=== PATIENT | male | born 1980 | race Caucasian/White ===

== ENCOUNTER 2024-11-08 07:45 | Day surgery (SDC) | payer OTHER ==
[2024-11-07 10:37] LABS: Absolute Eosinophils 0.1 K/uL (0-0.5); Absolute Lymphocytes (CBC) 1.9 K/uL (0.7-4.9); Absolute Monocytes 0.6 K/uL (0.1-1.3); Basophils % 0.6 % (0-1.3); Eosinophils % 1.6 % (0-4.4); Hematocrit 46.3 % (39.6-49.0); Lymphocytes % 24.5 % (15.3-44.8); MCH 32.1 pg (27.0-35.0); MCHC 34.6 g/dL (32.0-36.0); MCV 92.5 fL (80-100); MPV 8.6 fL (7.6-11.3); Monocytes % 7.9 % (3.3-12.3); Neutrophils % 65.4 % (41.7-73.7); Platelets 279 thou/uL (152-406)
[2024-11-07 10:45] LABS: PT Prothrombin Time 11.7 SECONDS (10.0-13.0); PTT, Activated Partial Thromb 29.7 SECONDS (24.3-36.9); Protime INR 1.03
[2024-11-07 10:52] LABS: Anion Gap 8.9 mEq/L (5.0-15.0); Potassium 3.9 mEq/L (3.5-5.1)
--- NOTE | 2024-11-07 12:40 | RAD REPORT ---
EXAMINATION: TWO VIEW CHEST XR CLINICAL INDICATION: Male, 44 years old. PRE OP. Hypertension TECHNIQUE: 2 view radiographs of the chest were performed. COMPARISON: No prior exam. FINDINGS: The lungs are well inflated and clear. No pneumothorax or sizable effusion. The heart is normal in si ze. Mediastinal contours are unremarkable. IMPRESSION: No acute or significant abnormalities.
[2024-11-08] MEDS ORDERED: NA CHLORIDE 0.9% 500 ML ONE (07:55)
[2024-11-08] MEDS ORDERED: HEPA 1000U/500MLS 2,000 UNIT/1,000 ML BAG IV ONE (08:32)
[2024-11-08] MEDS ORDERED: LIDOCAINE 1% 20 ML MDV ONE (08:33)
[2024-11-08] MEDS ORDERED: ATROPINE SULF 1 MG/10 ML SYR IV ONE (08:33)
[2024-11-08] MEDS ORDERED: HEPARIN 10,000 UNIT/10 ML VIAL IV ONE (08:33)
[2024-11-08] MEDS ORDERED: MIDAZOLAM HCL 2 MG/2 ML INJ ONE (08:33)
[2024-11-08] MEDS ORDERED: FENTANYL CITR 100 MCG/2 ML ONE (08:34)
[2024-11-08] MEDS ORDERED: TICAGRELOR 90 MG TABLET PO ONE (08:34)
[2024-11-08] MEDS ORDERED: HEPARIN 5000 UNIT/ML 1 ML VIAL ONE (08:34)
[2024-11-08] MEDS ORDERED: CLOPIDOGREL 75 MG TABLET ONE (08:34)
[2024-11-08] MEDS ORDERED: ASPIRIN 325 MG TAB ONE (08:34)
[2024-11-08 12:23] VITALS: BP 122/75; O2SAT 95
--- NOTE | 2024-11-08 21:26 | OP ---
Date of Procedure: 11/08/2024 Surgeon: Anthony Swanson Procedure Performed: Selective coronary angiogram. Indication For Procedure: Chest pain, abnormal stress test. Complications: None. Estimated Blood Loss: Less than 50 cc. Access: Right radial, closed by TR band. Sedation Time: 20 minutes with 1 of Versed and 50 of fentanyl. Description Of Procedure: After risks, benefits, and alternatives were explained to the patient, the patient agreed to proceed with procedure and signed informed consent. The patient was brought back to the laboratory phlebotomist, prepped and draped in sterile fashion. Time-out was performed. Sedation was admini stered. Next, right radial access was obtained using ultrasound-guided micropuncture technique. Tig er 4 catheter was advanced over J-wire to the aortic root. Selective angiogram was done using the sa me catheter. At the end of procedure, catheter was removed. The J-wire and sheath were removed. TR band was applied. Hemostasis was achieved. The patient was moved back to recovery in stable condit ion. Findings: 1. Left main: Normal. 2. LAD: Normal. 3. Left circumflex: Normal. 4. RCA: Normal. Assessment: Normal coronaries. Plan: Continue medical management. MCGILL/JEAN-PIERRE Voice ID: [id number] Report ID: [id number]
--- NOTE | 2024-11-13 11:30 | EKG ---
Test Date: 2024-11-07 Test Time: 11:12:38 [employer] Line Repairer: EM MEASUREMENT RESULTS: Intervals: Rate: 66 CT: 140 QRSD: 84 QT: 374 QTc: 392 [place]: P: 15 CT: 140 QRS: 1 T: 23 INTERPRETIVE STATEMENTS: Normal sinus rhythm Normal ECG No previous ECG available for comparison Electronically Signed On 11-13-24 11:10:15 CDT by Anthony Swanson
== END 2024-11-08 11:40 | disposition home or self-care (01) ==
LOC: CCL 07:45
PROVIDERS: ADMIT Internal Medicine; ATTEND Internal Medicine Interventional Cardiology
DX: R94.39 Abnormal result of other cardiovascular function study (principal); R07.9 Chest pain, unspecified; R00.2 Palpitations; I10 Essential (primary) hypertension; E78.2 Mixed hyperlipidemia; Z87.891 Personal history of nicotine dependence; Z79.899 Other long term (current) drug therapy; Z82.49 Family history of ischemic heart disease and other diseases of the circulatory system
CPT/HCPCS: 93005; 85025; 80048; 36415; 85610; 85730; 71046; 93454; 76937; C1893; Q9966; J1644; J2003; J2250; J3010; J7040; 99152; 99153; J0461